=== PATIENT | female | born 1960 | race Caucasian/White ===

== ENCOUNTER 2023-10-22 02:29 | Emergency (ER) | payer BC, SELFPAY ==
[2023-10-22 02:43] VITALS: BP 126/78; PULSE 85; RESP 17; TEMP 36.8; O2SAT 96; BMI 24.5
[2023-10-22 03:03] LABS: Basophils # 0.1 K/mm3 (0-0.2); Basophils % 0.5 % (0.1-2.0); Eosinophils # 0.5 K/mm3 (0.0-0.4); Eosinophils % 2.3 % (0.1-12.0); Hematocrit 44.8 % (37.0-47.0); Hemoglobin 14.6 g/dL (12.2-16.2); Lymphocytes # 0.5 K/mm3 (0.7-4.5); Lymphocytes % 2.5 % (10-50); Mean Corpuscular HGB Conc 32.5 g/dL (31.8-35.4); Mean Corpuscular Hemoglobin 30.9 pg (27.0-31.2); Mean Corpuscular Volume 94.9 fl (81-99); Mean Platelet Volume 7.8 fl (7.4-10.4); Monocytes # 0.7 K/mm3 (0.1-1.0); Monocytes % 3.5 % (1.7-9.3); Neutrophils # 17.6 K/mm3 (1.8-7.8); Neutrophils % 91.2 % (37.0-80.0); Platelet Count 198 K/mm3 (142-424); Red Blood Count 4.72 M/mm3 (4.20-5.40); Red Cell Distribution Width 14.6 % (11.5-17.5); White Blood Count 19.3 K/mm3 (4.8-10.8)
[2023-10-22] MEDS: ONDANSETRON 4MG/2ML VIAL 4 MG IV (03:03)
[2023-10-22] MEDS: LACTATED RINGERS 1000ML 500 ML 999 ML IV (03:03)
[2023-10-22 03:05] LABS: MANUAL DIFFERENTIAL MANUAL DIFFERENTIAL (MANUAL DIFF)
[2023-10-22 03:08] LABS: Chloride 102 mmol/L (98-107); Potassium 3.5 mmoL/L (3.5-5.1); Sodium 138 mmol/L (136-145)
[2023-10-22 03:11] LABS: Alanine Aminotransferase 28 U/L (12-78); Albumin Level 3.9 g/dl (3.5-5.0); Albumin/Globulin Ratio 1.4 (1.1-1.8); Alkaline Phosphatase 70 U/L (38-126); Anion Gap 7.5 mEq/L (5-15); Aspartate Amino Transferase 36 U/L (14-36); Bilirubin,Total 0.9 mg/dl (0.2-1.3); Blood Urea Nitrogen 17 mg/dl (7-17); Carbon Dioxide 32 mmol/L (22.0-30.0); Creatinine Clearance Estimated 55 mL/min (50-200); Estimated Glomerular Filt Rate 85 ml/min (>60); GFR (African American) 103 ML/MIN (>60); Globulin 2.7 g/dL (1.3-3.2); Total Protein,Serum 6.6 g/dl (6.3-8.2)
[2023-10-22 03:12] LABS: Calcium 8.7 mg/dl (8.4-10.2); Glucose 154 mg/dl (74-100)
[2023-10-22 03:13] LABS: Magnesium 1.8 mg/dl (1.6-2.3); Phosphorous 3.7 mg/dl (2.5-4.5)
--- NOTE | 2023-10-22 03:29 | [facility].EDGENADL ---
Discharge Plan Disposition Patient Disposition: Home, Self-Care Prescriptions Prescriptions: New ondansetron 4 mg tablet,disintegrating 4 mg PO Q8H PRN (Reason: nausea and vomiting) 4 Days Qty: 12 0RF Activity Restrictions/Add. Instructions Additional Instructions/Restrictions: At this time it was felt you are safe to be discharged home. If new or worsening symptoms please do not hesitate to return the emergency department. If symptoms persist please follow-up with your family doctor as you are able. Please take your medications as prescribed. Clinical Impressions Clinical Impression: Acute viral syndrome, Vomiting, Diarrhea Instructions Patient Instructions: DI for Diarrhea and Traveler's Diarrhea -- Adult, DI for Diarrhea and Traveler's Diarrhea -- Child, DI for Nausea -- Adult, DI for Nausea -- Child Discharge ED Provider: [facility] HPI General Chief complaint: Nausea/Vomiting/Diarrhea Stated complaint: vomiting and diarrhea Time Seen by Provider: 10/22/23 02:45 Mode of Arrival: Family Vehicle Source of Information: Spouse Limitations: No Limitations Description of Symptoms (Recalled from ER Triage Doc. by RN): n/v/d nonstop since 1699. States nothing has helped but states she hasn't taken much either. Abd cramping followed by n/v History of Present Illness HPI narrative: Patient is a 62-year-old female with no pertinent past medical history presents emergency department for evaluation of vomiting and diarrhea, it has been incessant since 1699 yesterday. Due to persistent symptoms she presents here for continued evaluation. Vomiting and diarrhea nonbloody. No other acute complaints at this time. Related Data Previous Rx's Medication Instructions Recorded ondansetron 4 mg disintegrating 4 mg PO Q8H PRN nausea and 10/22/23 tablet vomiting 4 days #12 tabs Allergies Allergy/AdvReac Type Severity Reaction Status Date / Time No Known Allergies Allergy Verified 10/22/23 02:47 [facility] Disclaimer: The information contained in this section may have been updated after the patient was seen, as this information can be updated by other users. Social History Smoking Status: Unknown if ever smoked alcohol intake: former current occupational status: other Travel in the last 8 weeks: None ROS Obtained: Yes Systems reviewed as appropriate & no additional complaints except as documented Physical Exam General General appearance: alert and in no apparent distress Head Head exam: atraumatic and normocephalic Eye Eye exam: Present PERRL ENT ENT exam: Present mucous membranes moist Neck Neck exam: Present normal inspection Chest Chest inspection: Present normal inspection and symmetric chest wall rise Respiratory Respiratory exam: Present normal lung sounds bilaterally; Absent respiratory distress Cardiovascular Cardiovascular exam: Present regular rate and normal rhythm Abdominal Exam Abdominal exam: Present soft; Absent tenderness Extremities Exam Extremities exam: Present normal inspection Neurological Exam Neurological exam: Present alert Psychiatric Psychiatric exam: Present normal affect Skin Skin exam: Present warm and dry Medical Decision Making Angelo Inquiry Pt receiving controlled substance: No Vital Signs: 10/22/23 02:43 10/22/23 03:52 Temperature 98.2 F 97.8 F Temperature Source Oral Oral Pulse Rate 86 Pulse Rate [Right Brachial] 85 Respiratory Rate 17 15 Blood Pressure 112/70 Blood Pressure [Right Arm] 126/78 Blood Pressure Mean [Right Arm] 94 Blood Pressure Source [Right Arm] Automatic Cuff Blood Pressure Position [Right Arm] Sitting 02 Sat by Pulse Oximetry 96 Oxygen Delivery Method Room Air Room Air Lab Data Lab Results 10/22/23 02:56: WBC 19.3 H, RBC 4.72, Hgb 14.6, Hct 44.8, MCV 94.9, MCH 30.9, MCHC 32.5, RDW 14.6, Plt Count 198, MPV 7.8, Neut % (Auto) 91.2 H, Lymph % (Auto) 2.5 L, [place] % (Auto) 3.5, Eos % (Auto) 2.3, Baso % (Auto) 0.5, Neut # (Auto) 17.6 H, Lymph # (Auto) 0.5 L, [place] # (Auto) 0.7, Eos # (Auto) 0.5 H, Baso # (Auto) 0.1, Total Counted 100, Neutrophils % (Manual) 90 H, Lymphocytes % (Manual) 8 L, Monocytes % (Manual) 2, Platelet Estimate Normal, RBC Morphology Normal, Sodium 138, Potassium 3.5, Chloride 102, Carbon Dioxide 32 H, Anion Gap 7.5, BUN 17, Creatinine 0.70, Estimated Creat Clear 55, Estimated GFR 85, Est GFR ( Amer) 103, Glucose 154 H, Calcium 8.7, Phosphorus 3.7, Magnesium 1.8, Total Bilirubin 0.9, AST 36, ALT 28, Alkaline Phosphatase 70, Total Protein 6.6, Albumin 3.9, Globulin 2.7, Albumin/Globulin Ratio 1.4, Lipase 50 10/22/23 02:56 10/22/23 02:56 Orders (Tests/Meds): ED MEDICATIONS Discontinued Medications Generic Name Dose Route Start Last Admin Trade Name Joseq PRN Reason Stop Dose Admin Lactated Ringer's 500 mls @ 999 mls/hr 10/22/23 02:47 10/22/23 03:03 Lactated Ringer's 1000 Ml Bag IV 10/22/23 03:17 999 mls/hr .Q31M ONE Administration Ondansetron HCl 4 mg 10/22/23 02:47 10/22/23 03:03 Ondansetron 4mg/2ml Vial IV 10/22/23 02:48 4 mg ONCE ONE Administration ORDERS Category Date Time Status Complete Blood Count Auto Diff Stat Lab 10/22/23 02:56 Completed Comprehensive Metabolic Panel Stat Lab 10/22/23 02:56 Completed Diarrhea 23 Panel, PCR Stat Lab 10/22/23 02:48 Ordered Lipase Stat Lab 10/22/23 02:56 Completed Magnesium Stat Lab 10/22/23 02:56 Completed Phosphorous Stat Lab 10/22/23 02:56 Completed Medical Decision Narrative: In summary patient is a 62-year-old female with past medical history described above who presents emergency department for evaluation of vomiting and diarrhea that is acute in onset that is nonbloody. Patient is hemodynamically stable nontoxic-appearing upon arrival, afebrile. Differential diagnosis includes viral syndrome, pancreatitis, among others. Workup will be conducted with hematologic labs. Initial inventions include crystalloid bolus and Zofran. Workup with imaging was considered however patient has a benign abdominal exam and will be deferred. Workup reviewed by me, patient has leukocytosis that is nonspecific, no critical electrolyte abnormality or KRAIG. Upon repeat evaluation patient had resolution of vomiting and was tolerating p.o. at bedside. Given this patient is appropriate for discharge at this time we discharged with a course of Zofran and was given return precautions. Critical Care Critical Care Time Critical Care Time: No
[2023-10-22 03:39] LABS: Lipase 50 U/L (23-300)
[2023-10-22 03:45] LABS: Lymphocytes % 8 % (10-50); Monocytes % 2 % (2-9); Neutrophils % 90 % (42-76); Platelet Estimate Normal; Total Cells Counted 100
[2023-10-22 03:46] LABS: RBC Morphology Normal
[2023-10-22 03:52] VITALS: BP 112/70; PULSE 86; RESP 15; TEMP 36.6; O2SAT 100
== END 2023-10-22 04:53 | disposition home or self-care (01) ==
PROVIDERS: Emergency Provider Emergency Medicine
DX: R11.2 Nausea with vomiting, unspecified (principal); R19.7 Diarrhea, unspecified; B34.9 Viral infection, unspecified
CPT/HCPCS: 80053; 83690; 83735; 84100; 85007; 85025; 96374; 99284; J2405; J7120